=== PATIENT | female | born 1935 | race Caucasian/White ===

== ENCOUNTER 2016-10-17 20:28 | Emergency (ER) | payer OTHER, MEDICARE ==
[~2016-10-17 20:28] MED LIST: AMITRIPTYLINE H10 M2 PO; ASPIRIN EC81 M1 PO; CELEBREX100 M1 PO; CELEBREX200 MG PO; CYCLOBENZAPRINE5 M2 PO; EYE VITAMIN-MI1 EACH PO; FLEXERIL 5MG TAB5 MG PO; LISINOPRIL-HCT1 EACH PO; METFORMIN HCL500 M3 PO; METOPROLOL TART25 M1 PO; MOTRIN800 MG PO; MYRBETRIQ25 M1 PO; NAPROSYN500 M1 PO; PIOGLITAZONE HC30 M1 PO; SIMVASTATIN20 M2 PO; SYNTHROID125 MCG PO; TYLENOL #31 TAB PO; VANIQA45 GM TOP; VITAMIN D2000 UNI1 PO
--- NOTE | 2016-10-17 21:36 | ED GI/GU/ABDOMINAL COMPLAINT ---
History of Present Illness General Chief Complaint: Female Urogenital Problems Stated Complaint: ?UTI Source: patient, old records Exam Limitations: no limitations Vital Signs & Intake/Output Vital Signs & Intake/Output Vital Signs Date Time Temp Pulse Resp B/P B/P Pulse O2 O2 Flow FiO2 Mean Ox Delivery Rate 10/18 2203 97.2 84 18 167/70 98 Room Air 10/17 2053 98.2 77 22 151/70 98 Allergies Coded Allergies: NO KNOWN ALLERGIES (01/23/15) Reconcile Medications Amitriptyline HCl 10 MG TABLET 1 TAB PO QPM UNKNOWN (Reported) Aspirin (Ecotrin*) 81 MG TABLET.DR 1 TAB PO DAILY HEART HEALTH (Reported) Celecoxib (Celebrex) 200 MG CAP 1 CAP PO DAILY PAIN Celecoxib (Celebrex) 100 MG CAPSULE 1 CAP PO BID PRN PAIN Celecoxib (Celebrex) 100 MG CAPSULE 1 CAP PO BID PRN PAIN Cholecalciferol (Vitamin D3) (Vitamin D) 2,000 UNIT TABLET 1 TAB PO DAILY SUPPLEMENT (Reported) Cyclobenzaprine HCl 5 MG TABLET 1 TAB PO TIDPRN MUSCLE SPASM Cyclobenzaprine HCl 5 MG TABLET 1 TAB PO TIDPRN MUSCLE SPASM Eflornithine HCl (Vaniqa) 45 GM CREAM..G. 1 VENUS TOP DAILY FACE (Reported) apply to affected area(s) Levothyroxine Sodium (Synthroid) 125 MCG TABLET 1 TAB PO DAILY AC THYROID ( Reported) Lisinopril/Hydrochlorothiazide (Lisinopril-Hctz 20-12.5 MG Tab) 1 EACH TABLET 1 TAB PO DAILY HEART (Reported) Metformin HCl 500 MG TABLET 1 TAB PO BID DIABETES (Reported) Metoprolol Tartrate 25 MG TABLET 0.5 TAB PO DAILY HEART (Reported) Mirabegron (Myrbetriq) 25 MG TAB.ER.24H 1 TAB PO DAILY BLADDER (Reported) Naproxen (Naprosyn) 500 MG TABLET 1 TAB PO BID PRN PAIN Pioglitazone HCl 30 MG TABLET 1 TAB PO DAILY DIABETES (Reported) Simvastatin (Simvastatin*) 20 MG TABLET 1 TAB PO QPM CHOLESTEROL (Reported) Sulfamethoxazole/Trimethoprim (Bactrim Ds Tablet) 800 MG-160 MG TABLET 1 TAB PO BID UTI Vit A/C/E AC/Znox/Cupric Oxide (Eye Vitamin-Minerals Tablet) 1 EACH TABLET 1 TAB PO BID SUPPLEMENT (Reported) Triage Note: PER PT UTI? FELT PRESSURE THIS AM STARTED WITH SYMPTOMS MONDAY WHILE IN [facility] Triage Nurses Notes Reviewed? yes ? n Is pt currently ? No Onset: Abrupt Duration: day(s): (2), constant, continues in ED Timing: recent history No Modifying Factors: none HPI: 81-year-old female comes into emergency room for further evaluation of increased frequency and burning with urination is been going on for the past 2 days. Denies any back pain nausea vomiting fever chills. Denies any abdominal pain. History of UTIs. Nothing seems to make the symptoms better. Denies any other associated symptoms. (LEE PEREIRA) Past History Travel History Traveled to [place] past 21 day No Medical History Any Pertinent Medical History? see below for history Neurological: NONE EENT: NONE Cardiovascular: hypertension, hyperlipidemia Respiratory: NONE Gastrointestinal: NONE Hepatic: NONE Renal: nephrolithiasis Musculoskeletal: osteoarthritis Psychiatric: NONE Endocrine: NONE History of MRSA: No History of VRE: No History of CDIFF: No Surgical History Surgical History: non-contributory, N Psychosocial History Who do you live with Friend Services at Home None What is your primary language Slovak Tobacco Use: Never used Family History Hx Contributory? No (LEE PEREIRA) Review of Systems Review of Systems Constitutional: Reports: no symptoms. EENTM: Reports: no symptoms. Respiratory: Reports: no symptoms. Cardiovascular: Reports: no symptoms. GI: Reports: no symptoms. Genitourinary: Reports: see HPI. Musculoskeletal: Reports: no symptoms. Skin: Reports: no symptoms. Neurological/Psychological: Reports: no symptoms. Hematologic/Endocrine: Reports: no symptoms. Immunologic/Allergic: Reports: no symptoms. All Other Systems: Reviewed and Negative (LEE PEREIRA) Physical Exam Physical Exam General Appearance: well developed/nourished, no apparent distress, alert, awake Head: atraumatic, normal appearance Eyes: Bilateral: normal appearance, EOMI. Ears, Nose, Throat, Mouth: hearing grossly normal, moist mucous membrane Neck: normal inspection, full range of motion Respiratory: normal breath sounds, no respiratory distress Cardiovascular: regular rate/rhythm Gastrointestinal: soft, non-tender Back: normal inspection Extremities: normal range of motion Neurologic/Psych: awake, alert, oriented x 3, normal gait, normal mood/affect Skin: intact, normal color Core Measures ACS in differential dx? No Severe Sepsis Present: No Septic Shock Present: No (LEE PEREIRA) Progress Differential Diagnosis: appendicitis, cholecystitis, diverticulitis, hernia, ischemic bowel, kidney stone, UTI/pyelo Plan of Care: Orders Procedure Date/time Status CULTURE,URINE 10/17 2052 Active URINALYSIS 10/17 2052 Complete Laboratory Tests 10/17/162105: Urine Color STRAW, Urine Clarity HAZY H, Urine pH 6.5, Ur Specific [place] 1.015, Urine Protein TRACE H, Urine Ketones NEG, Urine Nitrite NEG, Urine Bilirubin NEG, Urine Urobilinogen 0.2, Ur Leukocyte Esterase MOD H, Ur Microscopic SEDIMENT EXAMINED, Urine RBC >75 H, Urine WBC 3-5 H, Ur Epithelial Cells FEW, Urine Mucus FEW, Urine Hemoglobin MOD H, Urine Glucose NEG Microbiology 10/17 2105 URINE ROUT: Urine Culture - RECD Initial ED EKG: none Comments: 10/17/2016 10:04:06 PM Patient clinically looks well. Patient is nontoxic-appearing. Patient is in no apparent distress. No abdominal pain. No back pain. Symptoms consistent with uncomplicated UTI. (LEE PEREIRA) Departure Departure Disposition: HOME OR SELF CARE Condition: Stable Clinical Impression Primary Impression: UTI (urinary tract infection) Referrals: ROBE LINARES,KARRIE Esparza (PCP/Family) Additional Instructions: Take Bactrim as prescribed. Drink plenty of fluids. Rest. Follow-up with primary care doctor. Please go over all results of today's visit with your primary care doctor. Contact your primary care doctor to let them know you were here in the emergency room. There may be nonspecific findings which may not be related to your visit today here in the emergency room but may require further evaluation and chronic monitoring by your primary care doctor. If you had a laceration today the chance of foreign body always remains. You should follow-up with your primary care doctor for recheck in 3-5 days for a wound check. If you had an x-ray done there is a chance that a fracture could have been missed on initial read and you should follow-up with your primary care doctor for repeat x-rays if symptoms persist. If your blood pressure was elevated here in the emergency room please have rechecked by her primary care doctor within the next 48 hours by your primary care doctor. If you were prescribed a narcotic here in the emergency room or any type of controlled substances you're not allowed to drive while taking this medication or operate any type of heavy machinery. Narcotics can make you feel lightheaded dizziness nausea and can cause constipation. You may need to garbage pick up man a stool softener. Thank you for choosing [facility] emergency room. Please return to the emergency room immediately if you have any other concerns worsening of symptoms. Departure Forms: Customer Survey General Discharge Information Prescriptions: Current Visit Scripts Sulfamethoxazole/Trimethoprim (Bactrim Ds Tablet) 1 TAB PO BID #14 TAB (LEE PEREIRA) PA/[employer] SALES [employer]OCIATE Co-Sign Statement Statement: ED Attending supervision documentation- [] I saw and evaluated the patient. I have also reviewed all the pertinent lab results and diagnostic results. I agree with the findings and the plan of care as documented in the PA's/[employer] SALES ASSOCIATE's documentation. [X] I have reviewed the ED Record and agree with the PA's/[employer] SALES ASSOCIATE's documentation. [] Additions or exceptions (if any) to the PAs/SP[employer] SALES ASSOCIATE's note and plan are summarized below: [] (VICKIE LINARES,KARRIE Nobles)
[2016-10-17] MEDS ORDERED: BACTRIM DS TAB1 EACH PO (21:53)
[2016-10-17 22:04] VITALS: BP 167/70
== END 2016-10-17 22:11 ==
LOC: ERH 20:28
DX: N39.0 Urinary tract infection, site not specified (principal)
CPT/HCPCS: 81001; 87086